=== PATIENT | female | born 1985 ===

== ENCOUNTER 2022-07-07 23:17 | Emergency (ER) | payer OTHER ==
[~2022-07-07] VITALS: Ht 157 cm; Wt 54.0 kg
[2022-07-07] MEDS ORDERED: FAMOTIDINE 20 MG (PEPCID) TABLET PO STA (23:31)
[2022-07-07 23:35] LABS: HEMATOCRIT 38 % (35-52)
[2022-07-07 23:37] LABS: BASOPHILS % (AUTO) 0 % (0-10); EOSINOPHILS # (AUTO) 0.2 10^3/uL (0.0-0.3); EOSINOPHILS % (AUTO) 2 % (0-10); LYMPHOCYTES # (AUTO) 3.6 10^3/uL (1.0-4.0); LYMPHOCYTES % (AUTO) 34 % (12-44); MEAN CORPUSCULAR HEMOGLOBIN 31 pg (25-34); MEAN CORPUSCULAR HGB CONC 35 g/dL (32-36); MEAN CORPUSCULAR VOLUME 89 fL (80-99); MEAN PLATELET VOLUME 13.4 fL (9.0-12.2); MONOCYTES # (AUTO) 0.7 10^3/uL (0.0-1.0); MONOCYTES % (AUTO) 7 % (0-12); NEUTROPHILS # (AUTO) 6.1 10^3/uL (1.8-7.8); NEUTROPHILS % (AUTO) 57 % (42-75); PLATELET COUNT 128 10^3/uL (130-400); WHITE BLOOD COUNT 10.6 10^3/uL (4.3-11.0)
--- NOTE | 2022-07-07 23:39 | ED Chest Pain ---
General Stated Complaint: HEART ISSUES Source: patient Exam Limitations: no limitations History of Present Illness Date Seen by Provider: Jul 07, 2022 Time Seen by Provider: 23:22 Initial Comments Patient to the ER by private conveyance with her significant others and chief complaint that starting about 8 she started having left-sided upper chest pain which was significant. She also was having some nausea and a little bit of diarrhea. She feels like she is chilling and has had some numbness and tingling in her fingertips bilaterally. She says she has a history of going to the clinic for a UTI/pyelonephritis. She is not having any urinary symptoms today. She has not had any measured fevers. She does not have a primary care doctor. 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 She denies smoking or recreational drugs. She does occasionally drink but not tonight. She has not taken anything for her symptoms tonight. The only thing she takes routinely is acetaminophen. No other known medical history. Denies a history of hypertension, hyperlipidemia, diabetes, family early onset coronary disease history. Allergies and Home Medications Allergies Coded Allergies: No Known Drug Allergies (Unverified , 07/07/22) Patient Home Medication List Home Medication List Reviewed: Yes Review of Systems Review of Systems Constitutional: No chills, No diaphoresis EENTM: No Blurred Vision, No Double Vision Respiratory: Denies Cough; Shortness of Air Cardiovascular: See HPI, Chest Pain; Denies Lightheadedness Gastrointestinal: Denies Blood Streaked Stools, Denies Constipated; Diarrhea, Nausea; Denies Poor Appetite, Denies Poor Fluid Intake, Denies Vomiting Genitourinary: Denies Burning, Denies Discharge Musculoskeletal: No back pain, No joint pain All Other Systems Reviewed Negative Unless Noted: Yes Physical Exam Vital Signs Vital Signs - First Documented 07/07/22 07/08/22 23:43 00:36 Temp 36.8 Pulse 71 Resp 20 B/P (MAP) 108/72 (84) Pulse Ox 100 O2 Delivery Room Air O2 Flow Rate 2.00 FiO2 80 Capillary Refill : Height, Weight, BMI Height: '" Weight: lbs. oz. kg; BMI Method: General Appearance: WD/WN, Anxious HEENT: PERRL/EOMI, Pharynx Normal, Moist Mucous Membranes Neck: Full Range of Motion, Normal Inspection Respiratory: Lungs Clear, Normal Breath Sounds, No Accessory Muscle Use, No Respiratory Distress Cardiovascular: Regular Rate, Rhythm, No Edema, Normal Peripheral Pulses Gastrointestinal: Normal Bowel Sounds, Non Tender, Soft Extremity: Normal Capillary Refill, Normal Inspection, No Pedal Edema Neurologic/Psychiatric: Alert, Oriented x3, No Motor/Sensory Deficits, Other (Panicky, hyperventilating, anxious affect. Describes paresthesias in her fingertips) Skin: Normal Color, Warm/Dry Progress/Results/Core Measures Results/Orders Lab Results Laboratory Tests Test 07/07/22 23:25 07/08/22 02:37 Range/Units White Blood Count 10.6 4.3-11.0 10^3/uL Red Blood Count 4.26 3.80-5.11 10^6/uL Hemoglobin 13.0 11.5-16.0 g/dL Hematocrit 38 35-52 % Mean Corpuscular Volume 89 80-99 fL Mean Corpuscular Hemoglobin 31 25-34 pg Mean Corpuscular Hemoglobin Concent 35 32-36 g/dL Red Cell Distribution Width 12.9 10.0-14.5 % Platelet Count 128 L 130-400 10^3/uL Mean Platelet Volume 13.4 H 9.0-12.2 fL Immature Granulocyte % (Auto) 0 % Neutrophils (%) (Auto) 57 42-75 % Lymphocytes (%) (Auto) 34 12-44 % Monocytes (%) (Auto) 7 0-12 % Eosinophils (%) (Auto) 2 0-10 % Basophils (%) (Auto) 0 0-10 % Neutrophils # (Auto) 6.1 1.8-7.8 10^3/uL Lymphocytes # (Auto) 3.6 1.0-4.0 10^3/uL Monocytes # (Auto) 0.7 0.0-1.0 10^3/uL Eosinophils # (Auto) 0.2 0.0-0.3 10^3/uL Basophils # (Auto) 0.0 0.0-0.1 10^3/uL Immature Granulocyte # (Auto) 0.0 0.0-0.1 10^3/uL Percent Immature Platelet Fraction 19.2 H 0.0-7.6 % Prothrombin Time 13.7 12.2-14.7 SEC INR Comment 1.0 0.8-1.4 Activated Partial Thromboplast Time 32 24-35 SEC Sodium Level 139 135-145 MMOL/L Potassium Level 3.2 L 3.6-5.0 MMOL/L Chloride Level 105 98-107 MMOL/L Carbon Dioxide Level 15 L 21-32 MMOL/L Anion Gap 19 H 5-14 MMOL/L Blood Urea Nitrogen 9 7-18 MG/DL Creatinine 0.85 0.60-1.30 MG/DL Estimat Glomerular Filtration Rate 92 BUN/Creatinine Ratio 11 Glucose Level 107 H 70-105 MG/DL Calcium Level 9.4 8.5-10.1 MG/DL Corrected Calcium 8.5-10.1 MG/DL Magnesium Level 2.0 1.6-2.4 MG/DL Total Bilirubin 0.7 0.1-1.0 MG/DL Aspartate Amino Transf (AST/SGOT) 22 5-34 U/L Alanine Aminotransferase (ALT/SGPT) 22 0-55 U/L Alkaline Phosphatase 86 40-136 U/L Myoglobin 47.6 10.0-92.0 NG/ML Troponin I < 0.028 < 0.028 <0.028 NG/ML Total Protein 8.2 6.4-8.2 GM/DL Albumin 4.6 H 3.2-4.5 GM/DL Lipase 47 8-78 U/L Serum Alcohol < 10 <10 MG/DL Smear Scan YES Triglycerides Level 57 <150 MG/DL Cholesterol Level 134 < 200 MG/DL LDL Cholesterol Direct 98 1-129 MG/DL VLDL Cholesterol 11 5-40 MG/DL HDL Cholesterol 33 L 40-60 MG/DL My Orders Orders - DONG TOSCANO Continuous Ekg Monitoring (07/07/22:) Accucheck Stat ONCE (07/07/22:) Cbc With Automated Diff (07/07/22:) Magnesium (07/07/22:30) Comprehensive Metabolic Panel (07/07/22:) Myoglobin Serum (07/07/22:) Protime With Inr (07/07/22) Partial Thromboplastin Time (07/07/22) O2 (07/07/22:) Lipid Panel (07/08/22 06:00) Ed Iv/Invasive Line Start (07/07/22:) Lipase (07/07/22:30) Troponin I [place] (07/07/22 23:30) Aspirin Chewable Tablet (Baby Aspirin Ch (07/07/22 23:45) Lorazepam Tablet (Ativan Tablet) (07/07/22 23:45) Lidocaine 2% Viscous 15 Ml (Xylocaine Vi (07/07/22 23:45) Famotidine Tablet (Pepcid Tablet) (07/07/22 23:31) Antacid Suspension (Mylanta Suspension (07/07/22 23:45) Alcohol (07/07/22 23:33) Ondansetron Injection (Zofran Injectio (07/07/22 23:45) Chest 1 View, Ap/Pa Only (07/08/22 00:01) Lorazepam Injection (Ativan Injection) (07/08/22 00:30) Troponin I [place] (07/08/22 02:30) Ed Iv/Invasive Line Start (07/08/22 02:07) Lactated Ringers (Lr 1000 Ml Iv Solution (07/08/22 02:15) Ekg Tracing (07/07/22 23:23) Medications Given in ED Vital Signs/I&O 07/07/22 07/08/22 07/08/22 07/08/22 23:43 00:36 01:05 03:59 Temp 36.8 36.8 Pulse 71 73 73 Resp 20 18 18 B/P (MAP) 108/72 (84) 108/72 (84) 108/72 Pulse Ox 100 97 97 O2 Delivery Room Air Room Air Room Air Room Air O2 Flow Rate 2.00 2.00 FiO2 80 Progress Progress Note #1: Time: 23:38 Progress Note Patient certainly exhibits signs of anxiety and has some numbness and tingling in her fingertips so we will give her half a milligram of Ativan. We will try GI cocktail to see if this helps her chest pain. We will also give her aspirin 324 mg to chew and swallow. We will check some labs, EKG, chest x-ray, troponin etc. Progress Note #2: Time: 01:51 Progress Note Patient started having a panic attack and another 2 mg Ativan IV was given. 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 Her first troponin is negative. We are doing a delta troponin at 0230. Patient is resting comfortably at this time. Initial ECG Impression Date: Jul 08, 2022 Initial ECG Impression Time: 23:23 Initial ECG Rate: 92 Initial ECG Rhythm: Normal Sinus Initial ECG Intervals: Normal Initial ECG Impression: Normal Initial ECG Comparisson: No Previous ECG Available Comment Normal sinus rhythm without clinically relevant ST changes. Diagnostic Imaging Diagonstic Imaging: Xray Plain Films/CT/US/NM/MRI: chest Comments Prominent cardiac shadow. No acute pulmonary changes. [facility]. [place], [place] NAME: JIA RODRIGUEZ [facility] REC#: [id number] PT STATUS: DEP ER : 1985 PHYSICIAN: DONG TOSCANO MD ADMIT DATE: 07/07/22/ER Signed Date of Exam:07/08/22 CHEST 1 VIEW, AP/PA ONLY Indication: Chest pain. Findings: Lungs are clear. No failure, effusion or pneumothorax. Impression: No acute-appearing abnormality. Dictated by: Dictated on workstation # [id number] Dict: 07/08/22805 Trans: 07/08/221107 [facility] [id number] Interpreted by: DARINEL COLBERT Electronically signed by: DARINEL COLBERT 07/08/22 1108 Reviewed: Reviewed by Me Departure Impression Primary Impression: Chest pain Qualified Codes: R07.9 - Chest pain, unspecified Additional Impression: Panic attack Disposition: 01 HOME, SELF-CARE Condition: Stable Admissions Decision to Admit Reason: Admit from ER (General) Decision to Admit/Date: Jul 08, 2022 Time/Decision to Admit Time: 03:15 Departure-Patient Inst. Decision time for Depature: 03:16 Referrals: CINTHYA FAM MD UNKNOWN (PCP) Primary Care Physician Patient Instructions: Troponin Test, Chest Pain (DC) Add. Discharge Instructions: Your blood tests are reassuring but nothing imminent is happening with your heart tonight. I would like you to follow-up with the heart doctor, Dr. Fam and discuss your chest pain and do some more appropriate work-up in the clinic. Call his office today and get a follow-up appointment for later this week. If you are having unrelenting, severe chest pain, shortness of air or other worrisome symptoms then please return to the ER for reexamination. Work/School Note: Work Release Form Date Seen in the Emergency Department: Jul 08, 2022 Return to Work: Jul 09, 2022 Restrictions: No Restrictions Copy Copies To 1: CINTHYA FAM MD, TITUS J Jul 07, 2022 23:39
[2022-07-07 23:43] LABS: SMEAR SCAN COMMENT YES
[2022-07-07] MEDS ORDERED: ANTACID SUSP 30 ML UDC (MYLANTA) PO ONE (23:45)
[2022-07-07] MEDS ORDERED: LORazepam 0.5 MG (ATIVAN) TABLET PO ONE (23:45)
[2022-07-07] MEDS ORDERED: ONDANSETRON 4 MG/2 ML (SDV) Z0FRAN IVP ONE (23:45)
[2022-07-07] MEDS ORDERED: ASPIRIN 81 MG CHEW (CHILDREN'S ASA) PO ONE (23:45)
[2022-07-07] MEDS ORDERED: LIDOCAINE 2% VISCOUS 15 ML UDC PO ONE (23:45)
[2022-07-07 23:51] LABS: ALBUMIN 4.6 GM/DL (3.2-4.5); CHLORIDE 105 MMOL/L (98-107); POTASSIUM 3.2 MMOL/L (3.6-5.0); SODIUM 139 MMOL/L (135-145)
[2022-07-07 23:52] LABS: CALCIUM 9.4 MG/DL (8.5-10.1)
[2022-07-07 23:53] LABS: GLUCOSE 107 MG/DL (70-105); TOTAL PROTEIN 8.2 GM/DL (6.4-8.2)
[2022-07-07 23:54] LABS: CARBON DIOXIDE 15 MMOL/L (21-32); PROTHROMBIN TIME PATIENT 13.7 SEC (12.2-14.7)
[2022-07-07 23:55] LABS: BILIRUBIN,TOTAL 0.7 MG/DL (0.1-1.0)
[2022-07-07 23:57] LABS: ALKALINE PHOSPHATASE 86 U/L (40-136); CREATININE SERUM 0.85 MG/DL (0.60-1.30); GFR ESTIMATED 92
[2022-07-07 23:58] LABS: BUN/CREATININE RATIO 11
[2022-07-08] LABS: ALANINE AMINOTRANSFERASE 22 U/L (0-55)
[2022-07-08 00:01] LABS: LIPASE 47 U/L (8-78)
[2022-07-08] MEDS ORDERED: LORazepam INJ 2 MG/ML (ATIVAN) VIAL IVP ONE (00:30)
[2022-07-08] MEDS ORDERED: LACTATED RINGERS 1,000 ML IV ONE (02:15)
[2022-07-08 02:56] LABS: TRIGLYCERIDES 57 MG/DL (<150); VLDL CHOLESTEROL 11 MG/DL (5-40)
[2022-07-08 03:01] LABS: CHOLESTEROL 134 MG/DL (< 200)
[2022-07-08 03:02] LABS: HDL CHOLESTEROL 33 MG/DL (40-60)
[2022-07-08 03:59] VITALS: BP 108/72
--- NOTE | 2022-07-08 08:09 | Diagnostic Imaging Report ---
Indication: Chest pain. Findings: Lungs are clear. No failure, effusion or pneumothorax. Impression: No acute-appearing abnormality. Dictated by: Dictated on workstation # [id number]
== END 2022-07-08 03:59 | disposition home or self-care (01) ==
LOC: ER 23:23
DX: F41.0 Panic disorder [episodic paroxysmal anxiety] (principal); Z28.310 Unvaccinated for COVID-19
CPT/HCPCS: 71045; 80053; 80061; 83690; 83735; 83874; 84484 ×2; 85025; 85610; 85730; 93005; 99284; G0480; 36415; 80320

== ENCOUNTER 2022-12-05 14:12 | Emergency (ER) | payer SELFPAY ==
[~2022-12-05] VITALS: Ht 152 cm; Wt 54.0 kg
[2022-12-05] MEDS ORDERED: LORazepam 0.5 MG (ATIVAN) TABLET SL ONE (14:30)
[2022-12-05] MEDS ORDERED: ONDANSETRON 4 MG/2 ML (SDV) Z0FRAN IVP ONE (14:30)
[2022-12-05 14:49] LABS: EOSINOPHILS # (AUTO) 0.1 10^3/uL (0.0-0.3); EOSINOPHILS % (AUTO) 1 % (0-10); HEMOGLOBIN 12.6 g/dL (11.5-16.0); MEAN CORPUSCULAR HEMOGLOBIN 30 pg (25-34)
[2022-12-05 14:51] LABS: BASOPHILS % (AUTO) 0 % (0-10); HEMATOCRIT 37 % (35-52); LYMPHOCYTES # (AUTO) 1.2 10^3/uL (1.0-4.0); LYMPHOCYTES % (AUTO) 12 % (12-44); MEAN CORPUSCULAR HGB CONC 35 g/dL (32-36); MEAN CORPUSCULAR VOLUME 88 fL (80-99); MEAN PLATELET VOLUME 13.5 fL (9.0-12.2); MONOCYTES # (AUTO) 0.4 10^3/uL (0.0-1.0); MONOCYTES % (AUTO) 4 % (0-12); NEUTROPHILS # (AUTO) 8.7 10^3/uL (1.8-7.8); NEUTROPHILS % (AUTO) 84 % (42-75); PLATELET COUNT 126 10^3/uL (130-400); WHITE BLOOD COUNT 10.5 10^3/uL (4.3-11.0)
[2022-12-05 15:00] LABS: ALBUMIN 4.3 GM/DL (3.2-4.5)
[2022-12-05 15:01] LABS: POTASSIUM 3.6 MMOL/L (3.6-5.0)
[2022-12-05 15:02] LABS: CALCIUM 9.5 MG/DL (8.5-10.1); INR 1.2 (0.8-1.4); PROTHROMBIN TIME PATIENT 15.3 SEC (12.2-14.7)
[2022-12-05 15:03] LABS: TOTAL PROTEIN 7.6 GM/DL (6.4-8.2)
[2022-12-05 15:05] LABS: BILIRUBIN,TOTAL 0.5 MG/DL (0.1-1.0)
[2022-12-05 15:06] LABS: CREATININE SERUM 0.8 MG/DL (0.60-1.30)
[2022-12-05 15:09] LABS: SMEAR SCAN COMMENT YES
--- NOTE | 2022-12-05 15:09 | Diagnostic Imaging Report ---
INDICATION: Chest pain. TECHNIQUE: Frontal chest obtained at 03:05 p.m. and compared to 07/08/2022. FINDINGS: There is poor inspiration. Heart and mediastinal silhouette are normal in appearance. The lungs are clear. There is no pneumothorax or pleural fluid. IMPRESSION: No acute process in the chest. Dictated by: Dictated on workstation # [id number]
--- NOTE | 2022-12-05 15:59 | ED Chest Pain ---
General Chief Complaint: Chest Pain Stated Complaint: CHEST PAINS Nursing Triage Note: Patient to ER via wheelchair with chest pain. Source: patient, sign language interpreter Exam Limitations: language barrier History of Present Illness Date Seen by Provider: Dec 05, 2022 Time Seen by Provider: 14:17 Initial Comments This 37-year-old young lady presents to the emergency room hyperventilating and complaining of chest pain. She reported vomiting earlier in the day as well. She is [place]-speaking only and requires the sign language interpreter for obtaining the history. She denies any health problems or prior surgeries. She denies any drug or alcohol use. She has had no cough or fever. Symptoms started at a poor ly defined time earlier today. Pain is in the upper chest slightly to the left. She reports it is worse with deep breathing. Pain on arrival is 5/10. Vital signs are unremarkable. Allergies and Home Medications Allergies Coded Allergies: No Known Drug Allergies (Unverified , 07/07/22) Patient Home Medication List Home Medication List Reviewed: Yes Review of Systems Review of Systems Constitutional: no symptoms reported EENTM: No Symptoms Reported Respiratory: See HPI Cardiovascular: See HPI Gastrointestinal: See HPI Genitourinary: No Symptoms Reported Musculoskeletal: no symptoms reported Skin: no symptoms reported Psychiatric/Neurological: See HPI Endocrine: No Symptoms Reported Hematologic/Lymphatic: No Symptoms Reported Past Yxtmpcg-Llolxl-Ayeuly Hx Patient Social History Tobacco Use?: No Use of E-Cig and/or Vaping dev: No Substance use?: No Alcohol Use?: No Past Medical History Surgeries: No Respiratory: No Cardiac: No Neurological: No : No Last Menstrual Period: Oct 27, 2022 Reproductive Disorders: No Genitourinary: No Gastrointestinal: No Musculoskeletal: No Endocrine: No HEENT: No Cancer: No Psychosocial: No Integumentary: No Physical Exam Vital Signs Vital Signs - First Documented 12/05/22 14:18 Temp 36.5 Pulse 79 Resp 26 B/P (MAP) 104/76 (85) Pulse Ox 99 O2 Delivery Room Air Capillary Refill : Less Than 3 Seconds Height, Weight, BMI Height: '" Weight: lbs. oz. 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, Other (Anxious, hyperventilating) Skin: Normal Color, Warm/Dry Progress/Results/Core Measures Results/Orders Lab Results Laboratory Tests Test 12/05/22 14:40 12/05/22 14:58 12/05/22 17:20 Range/Units White Blood Count 10.5 4.3-11.0 10^3/uL Red Blood Count 4.17 3.80-5.11 10^6/uL Hemoglobin 12.6 11.5-16.0 g/dL Hematocrit 37 35-52 % Mean Corpuscular Volume 88 80-99 fL Mean Corpuscular Hemoglobin 30 25-34 pg Mean Corpuscular Hemoglobin Concent 35 32-36 g/dL Red Cell Distribution Width 12.5 10.0-14.5 % Platelet Count 126 L 130-400 10^3/uL Mean Platelet Volume 13.5 H 9.0-12.2 fL Immature Granulocyte % (Auto) 0 % Neutrophils (%) (Auto) 84 H 42-75 % Lymphocytes (%) (Auto) 12 12-44 % Monocytes (%) (Auto) 4 0-12 % Eosinophils (%) (Auto) 1 0-10 % Basophils (%) (Auto) 0 0-10 % Neutrophils # (Auto) 8.7 H 1.8-7.8 10^3/uL Lymphocytes # (Auto) 1.2 1.0-4.0 10^3/uL Monocytes # (Auto) 0.4 0.0-1.0 10^3/uL Eosinophils # (Auto) 0.1 0.0-0.3 10^3/uL Basophils # (Auto) 0.0 0.0-0.1 10^3/uL Immature Granulocyte # (Auto) 0.0 0.0-0.1 10^3/uL Percent Immature Platelet Fraction 19.3 H 0.0-7.6 % Prothrombin Time 15.3 H 12.2-14.7 SEC INR Comment 1.2 0.8-1.4 Activated Partial Thromboplast Time 36 H 24-35 SEC D-Dimer <= 0.27 0.00-0.49 UG/ML Sodium Level 139 135-145 MMOL/L Potassium Level 3.6 3.6-5.0 MMOL/L Chloride Level 108 H 98-107 MMOL/L Carbon Dioxide Level 20 L 21-32 MMOL/L Anion Gap 11 5-14 MMOL/L Blood Urea Nitrogen 9 7-18 MG/DL Creatinine 0.80 0.60-1.30 MG/DL Estimat Glomerular Filtration Rate 98 BUN/Creatinine Ratio 11 Glucose Level 90 70-105 MG/DL Calcium Level 9.5 8.5-10.1 MG/DL Corrected Calcium 9.3 8.5-10.1 MG/DL Magnesium Level 2.0 1.6-2.4 MG/DL Total Bilirubin 0.5 0.1-1.0 MG/DL Aspartate Amino Transf (AST/SGOT) 23 5-34 U/L Alanine Aminotransferase (ALT/SGPT) 29 0-55 U/L Alkaline Phosphatase 89 40-136 U/L Myoglobin 77.9 10.0-92.0 NG/ML Troponin I < 0.028 < 0.028 <0.028 NG/ML Total Protein 7.6 6.4-8.2 GM/DL Albumin 4.3 3.2-4.5 GM/DL Serum Test, Qualitative NEGATIVE NEGATIVE Smear Scan YES Influenza Type A (RT-PCR) Not Detected Not Detecte Influenza Type B (RT-PCR) Not Detected Not Detecte SARS-CoV-2 RNA (RT-PCR) Not Detected Not Detecte My Orders Orders - ISAAC ABREU MD Cbc With Automated Diff (12/05/22 14:27) Magnesium (12/05/22 14:27) Chest 1 View, Ap/Pa Only (12/05/22 14:27) Ekg Tracing (12/05/22 14:27) Comprehensive Metabolic Panel (12/05/22 14:27) Myoglobin Serum (12/05/22 14:27) Protime With Inr (12/05/22 14:27) Partial Thromboplastin Time (12/05/22 14:27) O2 (12/05/22 14:27) Monitor-Rhythm Ecg Trace Only (12/05/22 14:27) Ed Iv/Invasive Line Start (12/05/22 14:27) Troponin I [place] (12/05/22 14:27) Ondansetron Injection (Zofran Injectio (12/05/22 14:30) Lorazepam Tablet (Ativan Tablet) (12/05/22 14:30) Hcg,Qualitative Serum (12/05/22 14:27) Covid 19 Inhouse Test (12/05/22 14:27) Influenza A And B By Pcr (12/05/22 14:27) Fibrin Degradation Products (12/05/22 15:55) Troponin I [place] (12/05/22 17:10) Ketorolac Injection (Toradol Injection) (12/05/22 17:30) Medications Given in ED Vital Signs/I&O 12/05/22 12/05/22 14:18 18:20 Temp 36.5 Pulse 79 86 Resp 26 16 B/P (MAP) 104/76 (85) 94/66 Pulse Ox 99 O2 Delivery Room Air Room Air Blood Pressure Mean: 85 Progress Progress Note #1: Time: 17:26 Progress Note Patient's pain improved from 5/10 down to 3/10 after receiving Ativan. Work-up was unremarkable. Repeat troponin is being processed. Toradol is being given to further treat her pain. Ativan resolved her anxiety and hyperventilation. Progress Note #2: Progress Note Toradol completely relieved her pain. Repeat troponin was negative. See discharge instructions for further discussion. Initial ECG Impression Date: Dec 05, 2022 Initial ECG Impression Time: 14:19 Initial ECG Rate: 84 Initial ECG Rhythm: Normal Sinus Initial ECG Intervals: Normal Initial ECG Impression: Normal Comment Normal sinus rhythm with no ST elevation or depression. No abnormal intervals or axis deviation. Diagnostic Imaging Diagonstic Imaging: Xray Plain Films/CT/US/NM/MRI: chest Comments NAME: JIA RODRIGUEZ [employer] REC#: [id number] PT STATUS: REG ER : 1985 PHYSICIAN: ISAAC ABREU MD ADMIT DATE: 12/05/22/ER Draft Date of Exam:12/05/22 CHEST 1 VIEW, AP/PA ONLY INDICATION: Chest pain. TECHNIQUE: Frontal chest obtained at 03:05 p.m. and compared to 07/08/2022. FINDINGS: There is poor inspiration. Heart and mediastinal silhouette are normal in appearance. The lungs are clear. There is no pneumothorax or pleural fluid. IMPRESSION: No acute process in the chest. Dictated on workstation # [id number] Dict: 12/05/22 1506 Trans: 12/05/22 1508 [id number] Interpreted by: SUSANNE ROCHA MD Departure Impression Primary Impression: Pleuritic chest pain Additional Impression: Hyperventilation Disposition: 01 HOME, SELF-CARE Condition: Improved Departure-Patient Inst. Referrals: NO,LOCAL PHYSICIAN (PCP/Family) Primary Care Physician Patient Instructions: Chest Pain That Is Not Caused by the Heart (DC), Hyperventilation Add. Discharge Instructions: Your pain is likely coming from inflammation of the lung lining or within the chest wall. You may treat this with ibuprofen up to 600 mg every 6 hours as needed. Add Tylenol (acetaminophen) up to 1000 mg every 6 hours as needed for additional pain relief if needed. Return to care if you have worsening symptoms despite following these instructions. Please schedule follow-up appointment with your primary care provider soon as possible. All discharge instructions reviewed with patient and/or family. Voiced understanding. ISAAC ABREU MD Dec 05, 2022 15:59
[2022-12-05] MEDS ORDERED: KETOROLAC 30 MG/ML VIAL IVP ONE (17:30)
[2022-12-05 18:20] VITALS: BP 94/66
== END 2022-12-05 18:26 | disposition home or self-care (01) ==
LOC: EDUNIT# 14:12 → ER 14:15
DX: R07.81 Pleurodynia (principal); R06.4 Hyperventilation; Z28.310 Unvaccinated for COVID-19; Z20.822 Contact with and (suspected) exposure to COVID-19
CPT/HCPCS: 36415; 71045; 80053; 83735; 83874; 84484; 84703; 85025; 85379; 85610; 85730; 87636; 93005; 96374; 96375